=== PATIENT | female | born 1990 | race Two or more races ===

== ENCOUNTER 2024-11-02 19:00 | Emergency (ER) | payer MEDICAID, SELFPAY ==
--- NOTE | 2024-11-02 19:13 | XR_ITS ---
Examination: CT abdomen with intravenous contrast CT pelvis with intravenous contrast 2-D coronal reconstructions 2-D sagittal reconstructions Date and time of exam:November 02, 2024 10:23 PM Indications: October 29, 2023, abdominal pain 2 days. CTDI: vol (mGy) 24.61 DLP: (mGycm) 1082 Technique: Multiple axial sections of the abdomen and pelvis have been obtained. 64 slice high-resolution scanner used. 3 mm axial sections have been obtained, post intravenous injection 60 cc [id number] 2-D sagittal, coronal reconstructions obtained. Low dose protocols were performed. One or more of the following dose reduction techniques were used; automated exposure control, adjustment of the mA and/or KV according to patient size, use of iterative reconstruction technique. Findings: No focal liver or splenic lesion Absent gallbladder No pancreatic or adrenal mass No renal or ureteral calculi, no hydronephrosis Aorta normal size Absent appendix enlarged uterus, minimal contrast enhancement in the anterior uterus axial image 175 3 cm fat-containing umbilical hernia No bowel obstruction No diverticulitis Urinary bladder intact Impression: enlarged uterus, minimal contrast enhancement in the anterior uterus Recommend pelvic sonography follow-up to assess for retained products of conception, and endometritis
--- NOTE | 2024-11-02 19:14 | PD.EDABDPN ---
ED Abdominal Pain RME/HPI General Chief Complaint: Vaginal Bleeding Stated complaint: VAG PAIN Time seen by provider: 11/02/24 19:04 Arrival date/time: 11/02/24 19:00 RME / HPI RME / HPI narrative: 34-year-old female patient who is 3 days , [facility] came in for evaluation regarding lower abdominal pain, vaginal pain, onset of symptoms earlier today, severity moderate. Described as dull ache. Patient also told me that he is having vaginal bleeding with blood clots. Patient denies any vomiting. Denies any fever. Denies any other complaints. No medication was taken prior travel. Related Data Home Medications ?Medication ?Instructions ?Recorded ?Confirmed albuterol sulfate 90 mcg/actuation 2 puff inhalation Q4H PRN sob 09/30/19 09/30/19 aerosol inhaler fluticasone propionate 110 1 puff inhalation BID 09/30/19 09/30/19 mcg/actuation HFA aerosol inhaler (Flovent HFA) montelukast 10 mg tablet 10 mg PO QDAY 09/30/19 09/30/19 Allergies Allergy/AdvReac Type Severity Reaction Status Date / Time No Known Allergies Allergy Verified 07/25/18 01:55 Review of Systems Review of Systems Narrative Review of Systems: Review of system reviewed and within normal limits except mentioned in HPI ED Exam Narrative Physical exam: VITAL SIGNS: Reviewed. GENERAL APPEARANCE: Alert and interactive, follows commands, no acute distress, HEAD AND FACE: Non-traumatic. ENT: PERRL, pink conjunctivitis, eyelid no trauma, Mucous membrane moist. NECK: Supple, nontender, no nuchal rigidity. CHEST: No tenderness, no crepitus, no paradoxical movement, no retractions. LUNGS: Clear, well ventilated, symmetric, no rales, no wheezing, no ronchi, no stridor, good breath sounds bilaterally. HEART: Regular rate, regular rhythm, no murmur, no gallops. ABDOMEN: Soft, positive bowel sounds, nondistended, no guarding, lower abdominal tenderness, no rebound, no masses, RECTAL: Deferred. GENITAL: Deferred. NEUROLOGICAL: Gross motor function intact sensory function intact, Appropriate for age. MUSCULOSKELETAL: low back nontender, full range of motion. EXTREMITIES: Nontender, full range of motion. SKIN: Color pink, dry, no rash, no lacerations, no abrasions, no contusions. LYMPHATICS: Deferred. Course Quality Measures none Orders Category Date Time Status CT Screening NOW Care 11/02/24 19:[address] abdomen pelvis w con Stat Exams 11/02/24 19:13 Completed US pelvic complete Stat Exams 11/03/24 00:29 Completed CBC [CBC] Stat Lab 11/02/24 20:15 Completed CMP [Comprehensive Metabolic Panel] Stat Lab 11/02/24 20:15 Completed Lipase Stat Lab 11/02/24 20:15 Completed UA, C/S IF [Urinalysis, C/S if Indicated] Stat Lab 11/02/24 22:05 Completed Urine Culture Stat Lab 11/02/24 22:05 Received Ketorolac Inj [Toradol Inj] Med 11/03/24 02:01 Discontinued 15 mg IVP X1 ONE Ketorolac Inj [Toradol Inj] Med 11/02/24 19:17 Discontinued 30 mg IVP X1 ONE Sodium Chloride 0.9% 1000 ml [Ns] 1,000 ml Med 11/03/24 02:02 Discontinued IV 999 mls/hr cefTRIAXone [Rocephin] 1,000 mg Med 11/03/24 04:31 Discontinued Sodium Chloride 0.9% [Ns] 50 ml IV X1 Vital Signs Vital signs: Vital Signs Temperature 98.1 F 11/02/24 19:21 Pulse Rate 82 11/02/24 19:21 Respiratory Rate 18 11/02/24 19:21 Blood Pressure 171/98 H 11/02/24 19:21 Pulse Oximetry (%) 100 11/02/24 19:21 Oxygen Delivery Method Room Air 11/02/24 19:21 Abdominal Pain MDM MDM Narrative MDM Narrative:: 34-year-old female patient who is 3 days , [facility] came in for evaluation regarding lower abdominal pain, vaginal pain, onset of symptoms earlier today, severity moderate. Described as dull ache. Patient also told me that he is having vaginal bleeding with blood clots. Patient denies any vomiting. Denies any fever. Denies any other complaints. No medication was taken prior travel. Care transfered to Dr Medina at 1120 pm for final disposition Patient data External records reviewed:: None Clinical information provided by:: patient Social determinants that could affect healthcare access:: none Patient has the following chronic illnesses:: None How is presenting disease/condition affected by chronic disease/condition?: no chronic disease Evaluation data The following diagnostics were reviewed and interpreted by me:: lab results and radiology exam(s) Lab and/or radiology exams considered but not ordered:: None Interpretation Summary: Urinalysis positive for UTI. The rest of the labs unremarkable ultrasound of the pelvis showed uterus otherwise unremarkable. Medications / Prescriptions Medications or Prescriptions considered but not ordered:: None Medication administrations:: Medication Administration History Discontinued Medications Sodium Chloride (Ns) 1,000 mls @ 999 mls/hr IV .Q1H1M ONE Stop: 11/03/24 03:02 Last Infusion: 11/03/24 03:41 Dose: Infused Documented By: Admin: 11/03/24 02:27 Dose: 999 mls/hr Documented By: DEAN Ceftriaxone Sodium 1,000 mg/ (Sodium Chloride) 50 mls @ 100 mls/hr IV X1 ONE Stop: 11/03/24 05:00 Last Admin: 11/03/24 04:47 Dose: 100 mls/hr Documented By: CHEYENNE Ketorolac Tromethamine (Ketorolac Inj 30 Mg/Ml Vial) 30 mg IVP X1 ONE Stop: 11/02/24 19:18 Last Admin: 11/02/24 20:01 Dose: 30 mg Documented By: CHEYENNE Ketorolac Tromethamine (Ketorolac Inj 30 Mg/Ml Vial) 15 mg IVP X1 ONE Stop: 11/03/24 02:02 Last Admin: 11/03/24 02:27 Dose: 15 mg Documented By: DEAN Comments: Toradol, ceftriaxone IV, IV fluids for hydration Consultations Consultation(s) initiated? (list below): No Diagnosis Differential diagnosis abdominal pain: abdominal pain and other (Vaginal bleeding, UTI) Most likely diagnosis given after review of the tests above:: Vaginal bleeding, UTI, Admission Indicated Admission indicated?: not indicated Admission Request Was there a request for admission?: No Disposition Plan Disposition Plan: Discharge Discharge Attestation Discharge Attestation: Patient condition: Stable Discharge Plan Plan Patient Disposition: HOME (Self Care) Patient condition on transfer: Stable Prescriptions/Referrals Prescriptions/Med Rec: No Action montelukast 10 mg tablet 10 mg PO QDAY Patient Comments: TAKE 1 TABLET BY MOUTH EVERY DAY albuterol sulfate 90 mcg/actuation HFA aerosol inhaler 2 puff inhalation Q4H PRN (Reason: sob) Patient Comments: INHALE 2 PUFFS BY MOUTH EVERY 4 HOURS NEEDED Flovent HFA 110 mcg/actuation HFA aerosol inhaler 1 puff inhalation BID Patient Comments: INHALE 1 PUFF BY MOUTH TWICE A DAY Referrals: No Primary/Family,Physician [Primary Care Provider] - In 1 week Problem List Clinical Impression: Vaginal bleeding Patient/Caregiver Discharge Instructions Education Materials: Understanding Uterine Bleeding, ED CYSTITIS Female Adult Additional Instructions: 1. Continue your medications as per your primary care physician. Take Tylenol 650 mg 3 times a day for the next 2 to 3 days if needed. 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 2. You had IV contrast today with your CAT scan you will need to not breast-feed the baby until after 10 PM on November 03, 2024. 3. Stay hydrated with Pedialyte and/or Gatorade, urine should be almost clear. Return sooner for fever, worsening symptoms, or any other concerns. Print Language: Divehi Stand Alone Forms: [facility] Award Info., Patient Portal Info Letter
[2024-11-02 19:20] VITALS: BMI 40.2
[2024-11-02 19:21] VITALS: BP 171/98; PULSE 82; RESP 18; TEMP 36.7; O2SAT 100
[2024-11-02 19:39] VITALS: PULSE 88; RESP 18; O2SAT 99
[2024-11-02] MEDS: KETOROLAC INJ 30 MG/ML VIAL IVP (20:01)
[2024-11-02 20:10] VITALS: BP 135/111; PULSE 83; RESP 29; O2SAT 99
[2024-11-02 20:38] LABS: Basophils # (Auto) 0.1 Thou/mm3 (0.0-0.2); Basophils % (Auto) 0 % (0-2.5); Eosinophils # (Auto) 0.2 Thou/mm3 (0.0-0.5); Eosinophils % (Auto) 2 % (0-10); Hematocrit 32.1 % (36.0-46.0); Hemoglobin 10.9 g/dL (12.0-16.0); Immature Granulocytes % (Auto) 3 % (0-0); Immature Granulocytes Auto 0.35 Thou/mm3 (0.00-0.00); Lymphocytes # (Auto) 3.2 Thou/mm3 (1.0-4.8); Lymphocytes % (Auto) 23 % (10-50); Mean Corpuscular Volume 88 fL (80-100); Monocytes # (Auto) 0.7 Thou/mm3 (0.0-0.8); Monocytes % (Auto) 5 % (0-12); Neutrophils # (Auto) 9.3 Thou/mm3 (1.8-7.7); Neutrophils % (Auto) 67 % (37-80); Nucleated Red Blood Cell % 0 /100 WBC (0); Platelet Count 283 Thou/mm3 (140-440); Red Blood Count 3.63 Miln/mm3 (4.00-5.20); White Blood Count 13.8 Thou/mm3 (3.6-11.0)
[2024-11-02 21:01] LABS: Alanine Aminotransferase 18 U/L (10-49); Albumin, Serum 3.6 gm/dL (3.5-5.0); Albumin/Globulin Ratio 1.2 (1.2-2.2); Alkaline Phosphatase 109 U/L (46-116); Anion Gap 8 (7-16); Aspartate Amino Transferase 19 U/L (0-34); BUN/Creatinine Ratio 30 Ratio (12-20); Bilirubin,Total 0.3 mg/dL (0.3-1.2); Blood Urea Nitrogen 21 mg/dL (9-23); Calcium 9.4 mg/dL (8.3-10.6); Calcium (Corrected) 9.7 mg/dL (8.5-10.1); Carbon Dioxide 24.9 mMol/L (20.0-31.0); Chloride 107 mMol/L (98-107); Creatinine (Component) 0.7 mg/dL (0.6-1.3); Estimated Creatinine Clearance 125.1 mL/min (>60); Globulin 3.1 gm/dL (2.3-3.5); Glucose 85 mg/dL (74-106); Lipase 33 U/L (12-53); Osmolality,Calculated 281 (275-295); Potassium 3.6 mMol/L (3.4-5.1); Sodium 140 mMol/L (136-145); Total Protein 6.7 gm/dL (5.7-8.2); eGFR > 60 See Note
[2024-11-02 22:09] LABS: Collection Type, Urine Clean Catch; Squamous Epithelial Cell,Urine 0 /hpf (0-5)
[2024-11-02 22:21] LABS: Bilirubin,Urine Negative (Negative); Blood,Urine 3+ (Negative); Budding Yeast,Urine Present; Culture Indicated,Urine Yes; Glucose, Urine Negative (Negative); Ketones,Urine Negative (Negative); Leukocyte Esterase,Urine Positive (Negative); Nitrite,Urine Positive (Negative); PH,Urine 6.5 (5.0-7.0); Protein,Urine 1+ (Neg - Trace); RBC,Urine 820 /hpf (0-3); Specific Gravity,Urine 1.019 (1.001-1.035); Urobilinogen,Urine Negative mg/dL (0.0-1.0); WBC,Urine 124 /hpf (0-5)
[2024-11-02 22:22] LABS: Color,Urine Drk Yellow (Lt Yel-Yel)
[2024-11-02 22:23] LABS: Clarity,Urine Hazy (Clear/Hazy)
--- NOTE | 2024-11-02 23:21 | PD.EDADDENDU ---
Emergency Room Addendum Addendum Narrative: 2320: Care assumed from Evan Ochoa NP. Past medical, surgical, social and family history reviewed. Vitals and home medications reviewed. Results and treatment plan discussed. I will assume the care of the patient at this time and will follow the patient, pending transvaginal ultrasound. Please refer to the emergency department record for history and examination from initial visit. 0202: Patient is afebrile at this time. Patient is encouraged to stay well hydrated and ambulate as tolerated. Patient is stable to be discharged home after IVF and Toradol. RADIOLOGY RESULTS: Telerad Preliminary Report Draft Patient: SMILEY CORRAL [facility]. Record#: [id number] Birthdate: 1990 Age/Sex: 34 / F Location: [facility] Attending Dr: Ordering Physician: Date of Service: Procedure(s): Accession Number(s): cc: ~ Pelvic ultrasound (transabdominal) with doppler and wave doppler spectral analysis. November 03, 2024 0035 hours Clinical history: Rule out retained products of conception and endometriosis. Technique: Real-time, grayscale, transabdominal pelvic ultrasound was performed using Duplex scanning including arterial inflow, venous outflow, color and spectral Doppler. Comparison: None available at the time of this report. Findings: The uterus is normal in size measuring 16.7 x 7.6 x 9.6 cm. The endometrium is unremarkable and measures 0.4 cm. The right ovary measures 4.8 x 3.1 x 3.3 cm and is unremarkable. The left ovary measures 4.1 x 3.1 x 3.7 cm and is unremarkable. Both ovaries demonstrate color flow and spectral waveforms on Doppler evaluation. There is no adnexal mass. There is no free fluid on the submitted images. Impression: 1. Unremarkable pelvic sonogram. 2. No evidence of ovarian torsion. 3. No evidence of retained products of conception. Report Electronically Signed By: Lazaro Fair 11/03/2024 1:33:21 AM [EST]
[2024-11-02 23:25] VITALS: BP 120/76; PULSE 68; RESP 21; TEMP 36.5; O2SAT 100
--- NOTE | 2024-11-03 00:29 | XR_ITS ---
Examination: Pelvic ultrasound, transabdominal, complete Technique: Transabdominal ultrasound of the pelvis performed using grayscale imaging Date and time of exam: November 03, 2024 1235 hours INDICATIONS: Vaginal pain and pelvic cramping today October 29, 2024 FINDINGS: Uterus 16.7 x 7.6 x 9.6 cm Endometrial stripe 2.0 cm, no retained process of conception Right ovary 4.8 x 3.1 x 3.3 cm arterial flow Left ovary 4.1 x 3.9 x 3.7 cm arterial flow No fluid in the cul-de-sac IMPRESSION: enlarged uterus Negative for retained pelvis of conception
--- NOTE | 2024-11-03 01:34 | PRELIM_ITS ---
Pelvic ultrasound (transabdominal) with doppler and wave doppler spectral analysis. November 03, 2024 0035 hours Clinical history: Rule out retained products of conception and endometriosis.Technique: Re al-time, grayscale, transabdominal pelvic ultrasound was performed using Duplex scanning including ar terial inflow, venous outflow, color and spectral Doppler.Comparison: None available at the time of t his report.Findings:The uterus is normal in size measuring 16.7 x 7.6 x 9.6 cm. The endometrium is un remarkable and measures 0.4 cm.The right ovary measures 4.8 x 3.1 x 3.3 cm and is unremarkable.The le ft ovary measures 4.1 x 3.1 x 3.7 cm and is unremarkable.Both ovaries demonstrate color flow and spec tral waveforms on Doppler evaluation.There is no adnexal mass.There is no free fluid on the submitted images.Impression:1. Unremarkable pelvic sonogram.2. No evidence of ovarian torsion.3. No evidence o f retained products of conception. Report Electronically Signed By: Lazaro Fair 11/03/2024 1:33:2 1 AM [EST]
[2024-11-03 02:00] VITALS: BP 117/78; PULSE 76; RESP 19; TEMP 36.5; O2SAT 100
[2024-11-03] MEDS: SODIUM CHLORIDE 0.9% 1000 ML 1,000 ML 999 ML IV (02:27)
[2024-11-03] MEDS: KETOROLAC INJ 30 MG/ML VIAL 15 MG IVP (02:27)
--- NOTE | 2024-11-03 03:11 | PC.NURSE ---
PT CHANGED AND CLEANED
[2024-11-03 04:49] VITALS: BP 122/74; PULSE 70; RESP 16; TEMP 36.5; O2SAT 100
== END 2024-11-03 05:15 | disposition home or self-care (01) ==
PROVIDERS: Nurse Practitioner Family; Emergency Provider Emergency Medicine
DX: N93.9 Abnormal uterine and vaginal bleeding, unspecified (principal)
CPT/HCPCS: 36415; 74177; 76856; 80053; 81001; 83690; 85025; 87077; 87086; 87186; 96361; 96374; 99285; A4649; J0696; J1885; J7030; Q9967